=== PATIENT | male | born 1945 | race Caucasian/White ===

== ENCOUNTER 2018-04-04 08:06 | Day surgery (SDC) | payer OTHER ==
[2018-03-27 10:55] VITALS: BMI 23.9
[2018-04-04] MEDS ORDERED: LIDOCAINE HCL/PF 2% SDV 5ML VIAL ONE (08:49)
[2018-04-04] MEDS ORDERED: PROPOFOL 20 ML ONE ×2 (08:49)
[2018-04-04 09:31] VITALS: TEMP 97.7
[2018-04-04 10:02] VITALS: BP 116/76; PULSE 62
--- NOTE | 2018-04-08 12:39 | PATH ---
Surgical Pathology Report Patient Name: SILVINO LOUISE [facility]. Rec. #: [id number] /Age/Gender: 1945 (Age: 73) / M Account: [id number] Location: [facility] Taken: 04/04/2018 Received: 04/04/2018 Reported: 04/08/2018 Physicians: Henrry Mensah M.D. Specimen(s) Received A: RIGHT COLON B: HEPATIC FLEXURE Clinical History Rule out colon cancer Postoperative diagnosis: Diverticulosis, polyps Final Diagnosis A. RIGHT COLON, BIOPSY: TUBULAR ADENOMA. B. HEPATIC FLEXURE, BIOPSY: TUBULAR ADENOMA. Electronically Signed Ai Ballesteros M.D. Gross Description A. Received in formalin, labeled "right colon" is a appiah, irregular portion of soft tissue measuring 0.5 cm. in greatest dimension. The specimen is submitted in toto in one cassette. B. Received in formalin, labeled "hepatic flexure" is a appiah, irregular portion of soft tissue measuring 0.3 cm. in greatest dimension. The specimen is submitted in toto in one cassette. 04/05/2018 [facility]04/05/2018
== END 2018-04-04 10:15 | disposition home or self-care (01) ==
LOC: FASU-ENDO 08:06
PROVIDERS: ATTEND Internal Medicine Gastroenterology
PROC: 0DBL8ZX Excision of Transverse Colon, Via Natural or Artificial Opening Endoscopic, Diagnostic (ICD-10-PCS; 2018-04-04)
PROC: 0DBK8ZX Excision of Ascending Colon, Via Natural or Artificial Opening Endoscopic, Diagnostic (ICD-10-PCS; principal; 2018-04-04 08:58)
DX: Z12.11 Encounter for screening for malignant neoplasm of colon (principal); D12.2 Benign neoplasm of ascending colon; D12.3 Benign neoplasm of transverse colon; K57.30 Diverticulosis of large intestine without perforation or abscess without bleeding
CPT/HCPCS: 88305-TC